=== PATIENT | female | born 1935 | race African-American/Black ===

== ENCOUNTER 2018-09-18 17:49 | Inpatient (IN) ==
--- NOTE | 2018-09-18 18:04 | PROVIDER DOCUMENTATION ---
This chart was entered by Tamara Price Scribe, acting as scribe for Mike Santo MD. HPI-Neurological Disorder - General Source: EMS - History of Present Illness-Neuro Severity: reports: mild Onset/Duration: reports: other (prior to arrival) Timing: reports: gone now Context: reports: seizure activity Character of Altered Mental Status: reports: seizure activity Associated Symptoms: reports: denies symptoms Similar Symptoms Previously?: No Recently seen or treated by another doctor?: No - Seizure Witnessed seizure?: Yes (family) Episode details: reports: unknown duration, unknown number <Mike Santo - Last Filed: 09/18/18 19:04> <Zayra Recinos - Last Filed: 09/18/18 20:48> - General Chief Complaint: Altered Mental Status Stated Complaint: seizure Time Seen by Provider: 09/18/18 17:57 Allergies/Adverse Reactions: Patient Allergies Allergy/AdvReac Type Severity Reaction Status Date / Time No Known Allergies Allergy Verified 02/27/17 13:39 Home Medications: Home Medication List Medication Instructions Recorded Confirmed Last Taken Type Alendronate [Fosamax] 70 mg PO Q7D 09/23/15 10/21/15 09/23/15 17:00 History Celecoxib [Celebrex] 200 mg PO QAM 09/23/15 10/21/15 10/21/15 History Clonazepam 0.5 mg PO DAILY 09/23/15 10/21/15 10/21/15 History Ferrous Sulfate 325 mg PO QAM 09/23/15 10/21/15 10/21/15 History Fish Oil/Dha/Epa [Fish Oil 1,200 1 each PO QAM 09/23/15 10/21/15 10/21/15 History mg Fish Oil] Folic Acid 1 mg PO QAM 09/23/15 10/21/15 10/21/15 History Losartan [Cozaar] 25 mg PO QAM 09/23/15 10/21/15 10/21/15 History Memantine HCl [Namenda Xr] 28 mg PO QAM 09/23/15 10/21/15 10/21/15 History Methotrexate 2.5 mg PO QAM 09/23/15 10/21/15 10/21/15 History Quetiapine Fumarate [Seroquel] 25 mg PO QHS 09/23/15 10/21/15 10/21/15 History ROSUVAstatin [Crestor] 20 mg PO QAM 09/23/15 10/21/15 10/21/15 History Vitamin E 1,000 unit PO QAM 09/23/15 10/21/15 10/21/15 History Calcium 500 mg PO QAM 10/21/15 10/21/15 10/21/15 History Cholecalciferol (Vitamin D3) 100 gm MC QA 10/21/15 10/21/15 10/21/15 History [Vitamin D3] Hydrocodone/APAP 5 mg/325 mg 1 each PO Q6H PRN PRN #10 tablet 02/27/17 Unknown Rx [[facility]-5] Review of Systems - Adult - REVIEW OF SYSTEMS - ADULT ROS:: unobtainable per condition Constitutional: reports: no symptoms reported Eyes: reports: no symptoms reported Ears, Nose, Mouth & Throat: reports: no symptoms reported Cardiovascular: reports: no symptoms reported Respiratory: reports: no symptoms reported Gastrointestinal: reports: no symptoms reported Genitourinary: reports: no symptoms reported Musculoskeletal: reports: no symptoms reported Integumentary: reports: no symptoms reported Neurological: reports: no symptoms reported Psychiatric: reports: no symptoms reported Endocrine: reports: no symptoms reported Hematologic/Lymphatic: reports: no symptoms reported Allergic/Immunologic: reports: no symptoms reported All Other Systems: Reviewed and Negative <Mike Santo - Last Filed: 09/18/18 19:04> Past History - Adult - PAST MEDICAL HISTORY-ADULT Review of Records: reports: Nursing Assessment Review, Medications Reviewed, Social history reviewed & non-contributory. Major Childhood Illnesses: reports: denies history Cardiovascular: reports: HTN, hyperlipidemia Respiratory: reports: denies history Gastrointestinal: reports: denies history Obstetrical/Gynecological: reports: denies history Genitourinary: reports: denies history Musculoskeletal: reports: denies history Neurological: reports: dementia Psychiatric: reports: denies history Endocrine/Immune: reports: anemia Other Conditions: reports: denies history - PRIOR SURGERIES/PROCEDURES Surgical/Procedure History: reports: hysterectomy, orthopedic (extremity) - IMMUNIZATION STATUS Childhood Immunizations: See Nurse Assessment Flu Vaccine: See Nurse Assessment - FAMILY HISTORY Family History: reviewed, not pertinent - SOCIAL HISTORY Smoking: denies Substance Use: denies Living Situation: family <Mike Santo - Last Filed: 09/18/18 19:04> Physical Exam- Neurological - Physical Exam-Neuro Initial Vital Signs Reviewed: Yes General Appearance: thin, lethargic, other (unresponsive) Eye Exam: bilateral eye: normal inspection, PERRL HENMT: other (dry mucous membranes) Head Injury: no evidence of injury Respiratory: chest non-tender, lungs clear, normal breath sounds Cardiovascular: tachycardia Abdominal Exam: normal bowel sounds, soft, tenderness (generalized lower) Extremity: other (1 + pitting edema to bilateral lower extremities) nursing technician Exam: other (unable to assess per patient's condition) Coordination/Gait: other (unable to assess per patient's condition) Motor/Sensory: other (unable to assess per patient's condition) Neurologic: other (unable to assess per patient's condition) Integumentary: normal color, normal turgor, other (stage 1 sacral decubitic ulcer.) Psych/Mental Status: other (unresponsive) <Mike Santo - Last Filed: 09/18/18 19:04> Progress - CHANGE OF SHIFT REPORT (ED Provider) 1 Report Given and Care Transferred to:: Dr Recinos Time of Transfer: 19:00 Items Pending: Labs, XRAY Results <Mike Santo - Last Filed: 09/18/18 19:04> - PLAN OF CARE/RESULTS Result Diagrams: 09/18/18 18:14 09/18/18 19:45 - REASSESSMENT Reassessment #1 Status: other (Pt signed out to me by Dr. Santo pending labs and likely admission. 83 y/o F on hospice with advanced dementia and has been declining mor e and family would like her admitted for comfort. Family would like IVF and abx if indicated but do not want invasive or aggressive therapy.) Reassessment #2 Status: unchanged (markedly elevated BUN, creatinine, with elevated troponin. discussed findings with jesus and they would like pt treated with ASA and ivf but do not want dialysis cath, or other aggressive interventions. Pt with no urine output. ASA and additional IVF given and will admit. Discussed case with Dr. Comobs, Hospitalist, who will see and admit pt.) <Zayra Recinos - Last Filed: 09/18/18 20:48> - PLAN OF CARE/RESULTS Progress/Plan/Lab Results: Vital Signs - 8 hr 09/18/18 18:19 09/18/18 18:28 09/18/18 18:32 Temperature Pulse Rate 99 H 106 H 111 H Respiratory Rate 19 14 15 Blood Pressure 83/49 91/52 107/45 O2 Sat by Pulse Oximetry 100 100 09/18/18 18:39 09/18/18 18:42 09/18/18 18:52 Temperature 99.6 F Pulse Rate 110 H 109 H 105 H Respiratory Rate 14 13 13 Blood Pressure 83/49 101/56 102/50 O2 Sat by Pulse Oximetry 100 100 100 09/18/18 19:02 09/18/18 19:12 09/18/18 19:22 Temperature Pulse Rate 103 H 107 H 105 H Respiratory Rate 16 17 12 Blood Pressure 107/53 122/51 110/57 O2 Sat by Pulse Oximetry 09/18/18 19:32 09/18/18 19:42 09/18/18 19:52 Temperature Pulse Rate 101 H 103 H 105 H Respiratory Rate 12 20 14 Blood Pressure 98/54 104/56 118/57 O2 Sat by Pulse Oximetry 09/18/18 20:02 09/18/18 20:12 Temperature Pulse Rate 103 H 106 H Respiratory Rate 12 15 Blood Pressure 92/67 121/65 O2 Sat by Pulse Oximetry Laboratory Results - last 24 hr 09/18/18 09/18/18 09/18/18 18:14 18:14 18:30 WBC 1.48 L RBC 3.57 L Hgb 9.2 L Hct 27.7 L MCV 77.6 L MCH 25.8 L MCHC 33.2 RDW Std Deviation 18.7 H Plt Count 49 L MPV Not Reportable Immature Gran % (Auto) 5.4 H Neut % (Auto) 52.7 Lymph % (Auto) 37.8 [place] % (Auto) 2.7 Eos % (Auto) 1.4 Baso % (Auto) 0.0 Immature Gran # (Auto) 0.08 H Neut # (Auto) 0.78 L Lymph # (Auto) 0.56 L [place] # (Auto) 0.04 L Eos # (Auto) 0.02 Baso # (Auto) 0.00 Specimen Type ARTERIAL Sample Site R RADIAL pH 7.43 pCO2 27 L pO2 270 H HCO3 20.7 Base Excess -5.5 L Oxyhemoglobin 97.8 ABG O2 Sat (Calculated) 12.8 L ABG O2 Saturation 99.8 ABG Carboxyhemoglobin 0.80 ABG Methemoglobin 1.3 Basim Test YES A-a O2 Difference 409.0 Total Hemoglobin 8.8 L Lactate 0.80 Blood Gas Modality NRB FiO2 % 100.0 Sodium Potassium Chloride Carbon Dioxide Anion Gap BUN Creatinine Estimated GFR/1.73 m2 BUN/Creatinine Ratio Glucose POC Glucose Calculated Osmolality Calcium Total Bilirubin AST ALT Alkaline Phosphatase Troponin T 0.200 H Total Protein Albumin Globulin Albumin/Globulin Ratio 09/18/18 09/18/18 09/18/18 18:49 19:45 19:49 WBC RBC Hgb Hct MCV MCH MCHC RDW Std Deviation Plt Count MPV Immature Gran % (Auto) Neut % (Auto) Lymph % (Auto) [place] % (Auto) Eos % (Auto) Baso % (Auto) Immature Gran # (Auto) Neut # (Auto) Lymph # (Auto) [place] # (Auto) Eos # (Auto) Baso # (Auto) Specimen Type Sample Site pH pCO2 pO2 HCO3 Base Excess Oxyhemoglobin ABG O2 Sat (Calculated) ABG O2 Saturation ABG Carboxyhemoglobin ABG Methemoglobin Basim Test A-a O2 Difference Total Hemoglobin Lactate Blood Gas Modality FiO2 % Sodium 162 H* Potassium 4.7 Chloride 119 H Carbon Dioxide 16 L Anion Gap 27 BUN 151 H Creatinine 10.3 H* Estimated GFR/1.73 m2 4 BUN/Creatinine Ratio 15 Glucose 183 H POC Glucose 56 L D 50 L Calculated Osmolality 372 Calcium 8.3 L Total Bilirubin 0.32 AST 51 H ALT 16 Alkaline Phosphatase 66 Troponin T Total Protein 6.4 Albumin 2.6 L Globulin 3.8 Albumin/Globulin Ratio 0.7 Orders Category Date Time Status Martinez Cath Insertion ORDERED Care 09/18/18 19:04 Active CHEST-1 VIEW [RAD] Stat Exams 09/18/18 18:14 Completed ABG [RESP] Routine Lab 09/18/18 18:30 Completed BLOOD CULTURE [BLDCUL] Stat Lab 09/18/18 19:42 Results CBC WITH ELECTRONIC DIFF [HEME] Stat Lab 09/18/18 18:14 Completed COMPREHENSIVE METABOLIC PANEL [CHEM] Stat Lab 09/18/18 19:45 Completed LACTATE, PLASMA [CHEM] Stat Lab 09/18/18 18:14 Ordered TROPONIN T Stat Lab 09/18/18 18:14 Completed UA [URINALYSIS] [URINALYSIS] Stat Lab 09/18/18 18:15 Uncollected 0.9% Sodium Chloride Inj [Ns] 1,000 ml Med 09/18/18 18:25 Discontinued .ROUTE As directed 0.9% Sodium Chloride Inj [Ns] 1,000 ml Med 09/18/18 18:22 Discontinued IV 999 mls/hr 0.9% Sodium Chloride Inj [Ns] 1,000 ml Med 09/18/18 20:24 Active IV 999 mls/hr Aspirin Med 09/18/18 19:56 Discontinued 325 mg PO NOW ONE Dextrose 50% Syringe [D50w Syringe] Med 09/18/18 18:52 Discontinued 50 ml .ROUTE .STK-MED ONE Dextrose 50% Syringe [D50w Syringe] Med 09/18/18 18:50 Discontinued 50 ml IV NOW ONE Dextrose 50% Syringe [D50w Syringe] Med 09/18/18 19:50 Discontinued 50 ml IV NOW ONE EKG [EKG] Stat Ther 09/18/18 18:14 Ordered Pt discussed with who is medical power of atty and does want his worked up and treated. DNR being sent in by EMS. also asked that his stay DNR. (Mike Santo) Departure - Departure Date of Disposition Decision: 09/18/18 <Mike Santo - Last Filed: 09/18/18 19:04> - Departure Time of Disposition Decision: 20:47 Certified Medical Emergency: Emergent - Critical Care Note This patient required my direct & personal management of CC.: No <Zayra Recinos - Last Filed: 09/18/18 20:48> - Departure DIAGNOSIS: Troponin level elevated, Dehydration Acute renal failure Qualifiers: Acute renal failure type: unspecified Qualified Code(s): N17.9 - Acute kidney failure, unspecified Disposition: ADMITTED INPATIENT 09 Condition: Good Referrals and Follow-Ups: John Shaver MD [Primary Care Provider] - Attestation - Physician/ VITALY Attestation The physician spent face to face time with patient:: Yes Advanced Practice Provider documentation review:: Supervising physician onsite and consulted in the evaluation and care of this patient. The physician did have a face to face encounter with the patient. <Mike Santo - Last Filed: 09/18/18 19:04> This chart was documented by the indicated scribe, (Tamara Price Scribe) and accurately reflects the services I performed and decisions made by me, Mike Santo MD, as attested by the provider's signature.
[2018-09-18] MEDS ORDERED: NS 1,000 ML IV ONE ×2 (18:22→20:24)
[2018-09-18] MEDS ORDERED: NS 1,000 ML ONE (18:25)
[2018-09-18 18:40] LABS: ALLEN TEST YES; BE -5.5 mmoll (-3.0-3.0); BLOOD TYPE ARTERIAL; HCO3-(ACT) 20.7 mmoll (20.0-26.0); METHB 1.3 % (0.0-1.5); MODALITY NRB; O2(CT) 12.8 mL/dL (15.0-23.0); O2HB 97.8 % (95.0-99.0); PCO2(98.6) 27 mmHg (35-45); PO2(98.6) 270 mmHg (60-100); SAMPLE BLOOD; SAO2 99.8 % (95.0-100.0); THB 8.8 g/dL (11.5-17.4); pH(98.6) 7.43 (7.35-7.45)
--- NOTE | 2018-09-18 18:43 | Diag Imaging Result Doc PS360 ---
EXAM: CHEST-1 VIEW - 09/18/2018 HISTORY: sob TECHNIQUE: Portable chest COMPARISON: None. FINDINGS: Heart size is normal. There is some tortuosity of the thoracic aorta. There are couple granulomas and a few calcified hilar lymph nodes from old granulomatous disease. Aspiration is mildly shallow, with slight basilar subsegmental atelectasis. The lungs otherwise appear clear. There is no pleural effusion or pneumothorax identified. IMPRESSION: Mildly shallow inspiration, with slight basilar subsegmental atelectasis. No other evidence of acute disease. Electronically signed by Tarun Gregory 09/18/2018 6:41 PM
--- NOTE | 2018-09-18 18:46 | ED EKG INTERP ---
This chart was entered by Nikole Hale Scribe, acting as scribe for Mike Santo MD. EKG Interpretation - EKG Time of EKG reading by physician:: 18:31 EKG Read and Signed by:: Mike Santo EKG Interpretation (*Must complete 3 of following elements*): Abnormal (sinus tachycardia, Left axis deviation, Incomplete bundle branch block Abnormal ECG) Rate: 110 Rhythm: sinus tachycardia [place]: left QRS: normal MT Interval: normal Attestation - Physician/ VITALY Attestation Patient care was provided by Advanced Practice Provider:: No The physician spent face to face time with patient:: Yes Advanced Practice Provider documentation review:: Supervising physician onsite and consulted in the evaluation and care of this patient. The physician did have a face to face encounter with the patient. This chart was documented by the indicated scribe, (Nikole Hale Scribe) and accurately reflects the services I performed and decisions made by me, Mike Santo MD, as attested by the provider's signature.
[2018-09-18] MEDS ORDERED: D50W SYRINGE IV ONE ×2 (18:50→19:50)
[2018-09-18] MEDS ORDERED: D50W SYRINGE ONE (18:52)
[2018-09-18 19:26] LABS: EOS# 0.02 X1000 (0.0-0.7); EOS% 1.4 % (0.0-10.0); HEMATOCRIT 27.7 % (37.0-47.0); HEMOGLOBIN 9.2 g/dL (12.0-16.0); IMM GRAN# 0.08 X1000 (0.0-0.04); IMM GRAN% 5.4 % (0.0-0.5); LYMPH# 0.56 X1000 (1.2-3.4); LYMPH% 37.8 % (20.5-51.1); MCH 25.8 PG (27-31); MCHC 33.2 g/dL (33-37); MCV 77.6 FL (81-99); MONO# 0.04 X1000 (0.11-0.59); MONO% 2.7 % (1.7-9.3); NEUT# 0.78 X1000 (1.4-6.5); NEUT% 52.7 % (42.2-75.2); PLT 49 X1000 (130-400); RBC 3.57 XMIL (4.2-5.4); RDW 18.7 % (11.5-14.5); WBC 1.48 X1000 (4.8-10.8)
[2018-09-18] MEDS ORDERED: ASPIRIN PO ONE (19:56)
[2018-09-18 20:11] LABS: ALB/GLOB RATIO 0.7; ALBUMIN 2.6 g/dL (3.5-5.0); CALCIUM 8.3 mg/dL (8.8-10.2); POTASSIUM 4.7 mmol/L (3.5-5.1); TOTAL BILIRUBIN 0.32 mg/dL (0.20-1.00); TOTAL PROTEIN 6.4 g/dL (6.3-8.3)
[2018-09-18 20:22] LABS: CREATININE 10.3 mg/dL (0.5-0.9)
[2018-09-18 21:15] LABS: URINE SOURCE CATH
[2018-09-18] MEDS ORDERED: D5 1/2 NS 1,000 ML IV ONE (21:21)
[2018-09-18 21:31] LABS: BILIRUBIN URINE NEGATIVE (NEGATIVE); BLOOD URINE MODERATE (NEGATIVE); COLOR ORANGE; GLUCOSE URINE NEGATIVE (NEGATIVE); KETONE URINE NEGATIVE (NEGATIVE); LEUKOCYTES URINE LARGE (NEGATIVE); NITRITE URINE NEGATIVE (NEGATIVE); PH URINE 5.5; PROTEIN URINE 100 mg/dL (NEGATIVE); TURBIDITY URINE TURBID (CLEAR); UROBILINOGEN URINE NORMAL (NORMAL)
[2018-09-18 21:43] LABS: UR EPITHELIAL CELLS >10 /HPF (<10); URINE BACTERIA 2+ /HPF; URINE RBC 20-40 /HPF (<10); URINE WBC TNTC /HPF (<10)
[2018-09-18 21:44] LABS: URINE CASTS NONE SEEN; URINE CRYSTALS NONE SEEN; URINE YEAST NONE SEEN
[2018-09-18] MEDS ORDERED: MORPHINE IV PRN (21:45)
[2018-09-18] MEDS ORDERED: LEVAQUIN 750 MG/D5W 750 MG/150 ML IVPB IV ONE (22:22)
[2018-09-18] MEDS ORDERED: ZOFRAN IV PRN (22:22)
--- NOTE | 2018-09-19 00:32 | HISTORY AND PHYSICAL ---
CHIEF COMPLAINT: Confusion, poor p.o. intake. HISTORY OF PRESENT ILLNESS: Patient is an 83-year-old female with history of hypertension, hyperlipidemia, osteoporosis, and advanced dementia. Patient on hospice at home for dementia prior to admission. History is per the family as patient is nonverbal at this point. Family reports that patient has had very poor to no p.o. intake over the last 3 to 4 days. Over the last day or 2 has become less responsive. Today, she began having tremors of her upper extremities. They discussed the issue with the hospice nurse, but were not satisfied with discussion so they brought her here for further evaluation. Here, she was found to have severe kidney failure with creatinine 10, BUN 150. She will arouse but not really respond to any commands and is nonverbal. Apparently encephalopathic. She has produced no urine. Given patient's hospice status, goals of care were discussed with the family. They are okay with fluids and potentially antibiotics, but wish no aggressive measures taken. No CPR, no dialysis, no intubation or other aggressive measure. They expressed understanding that her prognosis is likely poor. They state that they thought she had some shortness of breath before she became less responsive, but have not noticed any obvious fever, chills, cough, or focal pain. REVIEW OF SYSTEMS: Unable to obtain secondary to patient's mental status. ALLERGIES: No known drug allergies. PAST MEDICAL HISTORY: Advanced dementia, osteoporosis, hypertension, hyperlipidemia. SOCIAL HISTORY: Family denies current alcohol, tobacco, or drug use. FAMILY HISTORY: Mother and father are both . LABS: WBC 1.48, hemoglobin 9.2, hematocrit 27.7, platelets 49,000. ABG with pH 7.43, pCO2 27, PO2 270, O2 saturation 99 on non-rebreather. Sodium 162, potassium 4.7, chloride 119, bicarbonate 16, BUN 151, creatinine 10.3, glucose on chemistry 183, point of care glucose 56 initially, improved to 75 on last check. Troponin 0.2. Urinalysis with large leukocytes, too numerous to count white cells, 20 to 40 red cells, and moderate blood. IMAGING: Chest x-ray with mildly shallow inspiration with slight bibasilar subsegmental atelectasis, but no obvious acute disease. VITALS: Temperature maximum 99.6 degrees, pulse is 101, respirations 12, blood pressure 83/49 to 121/65, O2 saturation 100%. PHYSICAL EXAMINATION: GENERAL: No acute distress, ill-appearing, cachectic. HEENT: Largely normocephalic although some temporal wasting noted. Extremely dry mucous membranes with dried blood in mouth, but no active bleeding noted. Difficult to identify the source of previous bleeding. CARDIOVASCULAR: Minimally tachycardic but regular. No rubs or gallops noted. PULMONARY: Clear to auscultation bilaterally. ABDOMEN: Soft, nontender, nondistended. Bowel sounds decreased but present. EXTREMITIES: Peripheral pulses decreased but present. No clubbing, cyanosis, or edema. NEUROLOGIC: Limited by patient mental status. Opens eyes spontaneously, but does not really track. Follows no commands. Occasional nonpurposeful movement of all extremities. No obvious focal deficits. Pupils equal, round, reactive to light. PSYCHIATRIC: Occasional spontaneous movement as above, but oriented x0, nonverbal and no response to commands. SKIN: No new rashes or lesions noted. ASSESSMENT AND PLAN: 1. Acute kidney injury. Patient with a creatinine of 10 and BUN of 151 on admission. Last creatinine in our system was from 2016 and was 1.7 at that time so may have CKD 3 baseline. Suspect severe dehydration due to poor p.o. intake and likely ATN. Family does not desire dialysis. We will hydrate and monitor ins and outs, but suspect her prognosis is poor. 2. Hypernatremia, severe, likely related to severe dehydration. We will give fluids and monitor closely. 3. Hypoglycemia, likely due to poor p.o. intake and general severe protein calorie malnutrition. We will place on D5 half-normal saline and monitor closely. 4. Elevated troponin, suspect demand ischemia/type 2 myocardial infarction related to dehydration. We will place on aspirin, but family does not desire any invasive cardiac workup. 5. Likely urinary tract infection. Patient with too numerous to count WBCs, large leukocyte esterase, no epithelial cells on urinalysis. We will give a dose of Levaquin for now and see what her kidney function does as the dose will likely have to be adjusted. 6. Mild hypotension. Patient blood pressure mildly low in the ED. Seemed to improve somewhat with fluids. We will hold home antihypertensives and monitor closely. 7. History of hypertension. Holding home blood pressure medications as above. 8. Hyperlipidemia. Hold home statin. 9. Severe protein calorie malnutrition. BMI of 16.3. Likely poor oral intake for quite some time. 10. Osteoporosis. Hold home osteoporosis medications. 11. Pancytopenia, unknown etiology. Possibly myelofibrosis. We will monitor. DISPOSITION: The patient with severe kidney failure likely related to severe dehydration, pancytopenia, advanced dementia. On hospice at home. Prognosis likely quite poor. We will place on antibiotics and fluids and monitor response. Discussed with family that if her kidneys do not improve in the next day or 2 then this is likely going to be fatal. Placed on morphine and Ativan available for comfort if needed.
[2018-09-19 05:51] LABS: CALCIUM 8.1 mg/dL (8.8-10.2); POTASSIUM 4.2 mmol/L (3.5-5.1)
[2018-09-19 05:52] LABS: CREATININE 11.3 mg/dL (0.5-0.9)
--- NOTE | 2018-09-19 07:01 | EKG Report ---
Test Performed on : 09/18/2018 6:31:40 PM Test Reason : sob Blood Pressure : / mmHG Vent. Rate : 110 BPM Atrial Rate : 110 BPM P-R Int : 114 ms QRS Dur : 104 ms QT Int : 370 ms P-R-T Axes : 075 -56 052 degrees QTc Int : 500 ms Sinus tachycardia. Left axis deviation Incomplete right bundle branch block Abnormal ECG When compared with ECG of 27-FEB-2017 14:08, premature atrial complexes. are no longer present Vent. rate has increased BY 40 BPM Incomplete right bundle branch block is now present Unconfirmed Result
--- NOTE | 2018-09-19 07:12 | Diag Imaging Result Doc PS360 ---
CHEST-PORTABLE - 09/19/2018 INDICATION: dyspnea COMPARISON: 09/18/2018 FINDINGS: The lungs are normally expanded and clear. Heart size and mediastinal contours are normal. No pneumothorax or pleural effusion. IMPRESSION: Negative exam. Electronically signed by Tavon London 09/19/2018 7:10 AM
[2018-09-19] MEDS ORDERED: D50W SYRINGE ONE (07:45)
[2018-09-19] MEDS ORDERED: D50W SYRINGE IV ONE (07:50)
[2018-09-19 08:36] LABS: EOS# 0.03 X1000 (0.0-0.7); EOS% 4.2 % (0.0-10.0); HEMATOCRIT 22.5 % (37.0-47.0); HEMOGLOBIN 7.3 g/dL (12.0-16.0); LYMPH# 0.41 X1000 (1.2-3.4); LYMPH% 57.7 % (20.5-51.1); MCH 25.4 PG (27-31); MCHC 32.4 g/dL (33-37); MCV 78.4 FL (81-99); MONO# 0.03 X1000 (0.11-0.59); MONO% 4.2 % (1.7-9.3); NEUT# 0.24 X1000 (1.4-6.5); NEUT% 33.9 % (42.2-75.2); PLT 24 X1000 (130-400); RBC 2.87 XMIL (4.2-5.4); RDW 18.7 % (11.5-14.5); WBC 0.71 X1000 (4.8-10.8)
[2018-09-19 08:55] LABS: CALCIUM 7.8 mg/dL (8.8-10.2); POTASSIUM 4.5 mmol/L (3.5-5.1)
[2018-09-19] MEDS: ASPIRIN PO SCH (09:00)
[2018-09-19] MEDS: KLONOPIN PO SCH ×2 (09:00→20:32)
[2018-09-19 09:02] LABS: EOS 4 % (1-10); LYMPHS 58 % (21-51); MONO 4 % (1-9); SEGS 34 % (42-75)
[2018-09-19 09:03] LABS: OVALOCYTES 1+; POIKILOCYTOSIS 1+
[2018-09-19] MEDS: ATIVAN IV PRN (12:10)
[2018-09-19] MEDS ORDERED: VANCOMYCIN IV PER PHARMACY MISC SCH (12:30)
[2018-09-19] MEDS ORDERED: ZOFRAN IV PRN (12:59)
[2018-09-19] MEDS ORDERED: MAXIPIME 1 GM in NS 50 ML IV SCH (13:00)
[2018-09-19 13:09] LABS: IRON SATURATION 61 %; TIBC 122 ug/dL; TOTAL IRON 74 ug/dL (49-151); UNBOUND IRON 48 ug/dL (112-346)
--- NOTE | 2018-09-19 13:56 | INFECTIOUS DISEASE CONSULT REP ---
DATE: 09/19/2018 CONCLUSION: Patient is admitted to the hospital with neutropenic fever. Most likely this secondary to a urinary tract infection as well as possible bacteremia. The patient's chest x-ray is clear. However, given that she is so leukopenic, an infiltrate may not show up currently but when the patient's white blood cell recovers, then infiltrate suggestive of pneumonia may be seen on chest x-ray. DISCUSSION: The patient is unable provide a history. Some family members are present but they did not know the patient's history. The information I got on the patient was from information from the computer. The patient was admitted the hospital with confusion and poor p.o. intake. She has also was febrile. She had a CBC with a white count of 710 with an absolute neutrophil count of 0. The patient's creatinine is 0.7. GFR is greater than 60. On the patient's CBC, the white blood cell count is 710, absolute neutrophil count is 0, hemoglobin 7.3, and platelet count is 24,000. Chest x-ray shows clear lung gonzalez, but when the white blood cell recovers if it does at all, then infiltrates may appear suggestive of pneumonia. The patient had 1 of 2 blood cultures positive for gram-positive coccus. This could be a contaminant or it could be a pathogen. Urinalysis showed white cells and bacteria. Creatinine is 11. GFR is 4. REVIEW OF SYSTEMS: Unable to be obtained. PAST MEDICAL HISTORY: Positive for advanced dementia, osteoporosis, hypertension, and hyperlipidemia. SOCIAL HISTORY: The patient does not drink alcoholic beverages, smoke cigarettes or abuse drugs. FAMILY HISTORY: Unable to be obtained. DRUG ALLERGIES: None known. PHYSICAL EXAMINATION: Vital signs: Temperature is 101.2 degrees, pulse 109, respirations 17, blood pressure 107/55. The patient is 5 feet 7 inches tall, weighs 104 pounds. General: This is a chronically ill and malnourished-appearing, elderly female. She is obtunded. She seems to be somewhat dyspneic. Head/eyes/ears/nose/throat: No drainage noted from the nose or ears. The patient has been bleeding in her mouth, there are some eschars present. Neck: No meningismus. Lungs: Clear to auscultation. Cardiovascular: Heart rate is regular. Abdomen: Soft and nontender. Neurologic: Patient is obtunded. There is no tremor. Integument: No rash noted. Thank you for the consult. cc: Nahum Blakely MD
--- NOTE | 2018-09-19 14:17 | INFECTIOUS DISEASE PROGRESS NO ---
DATE: 09/19/2018 PLAN AND ASSESSMENT: I have examined the patient and reviewed her history. This patient is critically ill and I think she has close to no chance for surviving. She does seem to be in quite a bit of misery. I have discussed all this with the family and we all agree that the patient is going to be a DNR and that we are only going to do comfort measures for her now. We have also put in a consult for Palliative Care who will see the patient tomorrow. We have ordered medications to keep the patient as comfortable as possible. cc: Nahum Blakely MD MTDD
[2018-09-19 15:08] LABS: RETIC% 0.12 % (0.8-2.1)
[2018-09-19] MEDS: OFIRMEV 1000 MG/ISOTONIC SOLN 1,000 MG/100 ML BOTTLE IV PRN (16:44)
--- NOTE | 2018-09-19 17:35 | PROGRESS NOTE ---
DATE: 09/19/2018 SUBJECTIVE: The patient is poorly responsive. Has family present in the room. They have opted to make her to receive comfort measures only. VITAL SIGNS: As follows: Temperature 103.1, pulse [*], blood pressure is 115/54, oxygen saturation is 88%.HEENT: Atraumatic, normocephalic. Cardiovascular: S1, S2. Respiratory: Has evidence of good air entry bilaterally. Abdomen: Soft, nontender. No masses felt. Extremities: No evidence of edema. Central Nervous System: The patient is obtunded. ASSESSMENT: 1. Acute kidney injury. 2. Hyponatremia. 3. Hypoglycemia. 4. Elevated troponin. 5. Urinary tract infection. 6. Protein calorie malnutrition. 7. Pancytopenia [*]. PLAN: Comfort measures only. Will use Ativan on a p.r.n. basis for agitation and also morphine on a p.r.n. basis for pain. cc: Flynn Amador MD
[2018-09-19] MEDS: MORPHINE IV PRN ×2 (17:54→20:26)
[2018-09-20] MEDS: MORPHINE IV PRN ×8 (04:05→19:24)
[2018-09-20] MEDS ORDERED: CALMOSEPTINE OINTMENT TOP ONE (06:37)
[2018-09-20] MEDS ORDERED: CALMOSEPTINE OINTMENT TOP PRN (06:37)
[2018-09-20] MEDS: ASPIRIN PO SCH (08:25)
[2018-09-20] MEDS: KLONOPIN PO SCH ×2 (08:26→20:30)
[2018-09-20] MEDS: ATIVAN IV PRN ×3 (11:26→20:23)
--- NOTE | 2018-09-20 15:31 | PROGRESS NOTE ---
DATE: 09/20/2018 SUBJECTIVE: This morning Ms. Vasquez is seen in her hospital bed. There is a lot of family members at the bedside including the , Ms Vasquez is currently under comfort measures only and pending [facility] to evaluate for GIP. OBJECTIVELY: Her current vitals blood pressure is 96/43, pulse is 105, respiration is 12, temperature 98.5 degrees.General: Ms. Vasquez is an 83-year-old elderly female she is in bed, she was not in any distress. Mucosa is pink, slightly dry. Anicteric, acyanotic. Neck: Supple. Chest: Clear to auscultation. Cardiovascular: Slightly tachycardic but no murmurs. Abdomen: Soft. Bowel sounds present. Extremities: No pedal edema. DISABILITY ATTORNEY: Patient is very obtunded, will however open the eyes to painful stimulation and she seems to be moving very sluggishly both upper and lower extremities to painful stimulation. LABORATORY DATA: None for today. Review of the previous 1 was consistent with severe pancytopenic and a lot of abnormalities in her chemistries. ASSESSMENT: 1. Severe pancytopenia, etiology is unclear. 2. Acute kidney injury. 3. High anion gap metabolic acidosis. 4. 1/2 gram positive cocci bacteremia. Unsure if is a contamination. Will have to wait for the ID and sensitivity. 5. Poor prognosis. The patient is currently do not resuscitate level 1 and she is on comfort care measures. cc: Trev Morales MD MTDD
[2018-09-20] MEDS: ATROPINE 1 % OPHTH SOLN SL PRN ×2 (20:29→23:53)
[2018-09-21] MEDS: OFIRMEV 1000 MG/ISOTONIC SOLN 1,000 MG/100 ML BOTTLE IV PRN (03:19)
[2018-09-21] MEDS: ATROPINE 1 % OPHTH SOLN SL PRN ×2 (03:20→10:34)
[2018-09-21] MEDS: MORPHINE IV PRN ×2 (05:43→10:31)
[2018-09-21 08:39] VITALS: BP 96/45
[2018-09-21] MEDS: ASPIRIN PO SCH (10:30)
[2018-09-21] MEDS: KLONOPIN PO SCH (10:30)
--- NOTE | 2018-09-21 15:28 | DISCHARGE SUMMARY ---
ADMISSION DATE: 09/18/2018 DISCHARGE DATE: 09/21/2018 DATE OF : 09/21/2018 at 11:41 CONSULTATIONS DURING THIS ADMISSION: Infectious Disease was consulted. The patient was seen by Dr. Blakely, palliative services were consulted. [facility] was also consulted. INVASIVE PROCEDURES DONE DURING THIS ADMISSION: None. IMAGING STUDIES OF SIGNIFICANCE: A chest x-ray did show slight bibasilar subsegmental atelectasis. A repeat was normal. MICROBIOLOGY DATA: This showed blood culture positive for Staphylococcus capitis which was oxacillin sensitive. ASSESSMENT: At the time of : 1. Septic shock associated with methicillin sensitive Staphylococcus aureus bacteremia. 2. Severe pancytopenia with neutropenic fever. 3. Acute kidney injury, likely ATN. 4. Infectious encephalopathy. 5. High anion gap metabolic acidosis. PRESENTING COMPLAINT: Confusion, poor oral intake. HISTORY OF PRESENTING COMPLAINT: Ms. Vasquez is an 83-year-old -[place] female with extensive history of hypertension, dyslipidemia, osteoporosis, advanced dementia who was on hospice at home prior to admission. The patient was noted to have a very poor appetite, 3-4 days prior to admission and was gradually becoming unresponsive and was brought to the emergency department for medical evaluation. On presentation, the patient was found to have a creatinine of 10, BUN 115 and was remarkably hypotensive and was admitted for medical care. HOSPITAL COURSE: Ms. Vasquez was initially admitted to the medical floor, aggressively fluid resuscitated, was started on IV antibiotics. Cultures were done and Infectious Disease was consulted. During the nightly, palliative medicine was also consulted and conservations were with the family members who ultimately wanted hospice to be involved. [facility] evaluated the patient. The patient qualified for [facility]. She was transitioned to comfort care and therapeutic interventions were all discontinued upon parent/family request. Ms. Vasquez continued to decline. She was transitioned only to comfort care measures and unfortunately on the morning of 09/21/2018 at 11:41 she was evaluated by the nurses on the floor because she was showing no signs of any vitality. She had no heart rate, no respiratory effort, no cortical or subcortical function. She was subsequently pronounced by two attending nurses on the floor. The family members were notified. I also went and verified her current status. I spoke with the family members as well, including the and a son who is one of the social workers in the hospital. cc: Trev Morales MD
== END 2018-09-21 11:41 | disposition expired | DRG 871 ==
LOC: SUPCPDRO → ED 17:49 → EDIPHOLD 22:56 → SUATTDRO 22:56 → 4N 09-19 13:27
PROVIDERS: ATTEND Internal Medicine
CPT/HCPCS: 36430; 51702; 71010; 71045; 80048; 80053; 81001; 82607; 82746; 82805; 82948; 83540; 83550; 83615; 84484; 84550; 85025; 85045; 86850; 86870; 86900; 86901; 86922; 87040; 87077; 87186; 93005; 96361; 96365; 96366; 96367; 96375; 96376; 99285; A9270; J0131; J1956; J2060; J2270; J7030; P9035; XXXXX